=== PATIENT | female | born 1995 ===

== ENCOUNTER 2017-08-12 00:06 | Emergency (ER) | payer BC ==
[2017-08-12 00:34] VITALS: RESP 18; TEMP 98.3; BMI 32.1
--- NOTE | 2017-08-12 01:20 | ED PDOC ---
Arrival/HPI - General Chief Complaint: Medical Clearance Time Seen by Provider: 08/12/17 01:10 - History of Present Illness Narrative History of Present Illness (Text): 08/12/17 01:17 Patient is a 22 year old female whose past medical history includes asthma, who presents to the Emergency department with her mother complaining of taking 16 tablets of Zyrtec approximately 2.5 hours ago. Patient reports that she was at home and was taking the medication for allergies. Her mother was joking about taking the whole bottle but patient thought she was serious and took 16 tablets. Patient subsequently called poison control who instructed her to immediately present to Emergency department. She denies having any suicidal ideation, and also denies any fatigue, or nausea. Time/Duration: 1-3 hours Symptom Onset: Other (asymptomatic) Context: Home Past Medical History - Provider Review Nursing Documentation Reviewed: Yes - Infectious Disease Hx of Infectious Diseases: None - Cardiac Hx Cardiac Disorders: No - Pulmonary Hx Respiratory Disorders: Yes Hx Asthma: Yes - Neurological Hx Neurological Disorder: No - HEENT Hx HEENT Disorder: No - Renal Hx Renal Disorder: No - Endocrine/Metabolic Hx Endocrine Disorders: No - Hematological/Oncological Hx Blood Disorders: No - Integumentary Hx Dermatological Disorder: No - Musculoskeletal/Rheumatological Hx Musculoskeletal Disorders: No - Gastrointestinal Hx Gastrointestinal Disorders: No - Genitourinary/Gynecological Hx Genitourinary Disorders: No - Psychiatric Hx Psychophysiologic Disorder: No Hx Substance Use: Yes (Marijuana) - Anesthesia Hx Anesthesia: No Family/Social History - Physician Review Nursing Documentation Reviewed: Yes Family/Social History: No Known Family HX Smoking Status: Never Smoked Hx Alcohol Use: Yes Frequency of alcohol use: Socially Hx Substance Use: Yes (Marijuana) Allergies/Home Meds Allergies/Adverse Reactions: Allergies kiwi Allergy (Verified 08/12/17 00:43) SWELLING Home Medications: Home Meds Medication Instructions Recorded Confirmed No Known Home Med 08/12/17 08/12/17 Review of Systems - Physician Review All systems were reviewed & negative as marked: Yes - Review of Systems Constitutional: absent: Fatigue Gastrointestinal: absent: Nausea Psychiatric: absent: Suicidal Ideation Physical Exam Vital Signs Reviewed: Yes Vital Signs Temp Pulse Resp BP Pulse Ox 08/12/17 05:11 84 18 112/68 100 08/12/17 04:07 88 18 108/74 100 08/12/17 02:07 82 16 121/68 100 08/12/17 00:32 98.3 F 69 18 115/77 98 Temperature: Afebrile Blood Pressure: Normal Pulse: Regular Respiratory Rate: Normal Appearance: Positive for: Well-Appearing Mental Status: Positive for: Alert and Oriented X 3 - Systems Exam Head: Present: Atraumatic, Normocephalic Pupils: Present: PERRL Extroacular Muscles: Present: EOMI Conjunctiva: Present: Normal Mouth: Present: Moist Mucous Membranes Neck: Present: Normal Range of Motion Respiratory/Chest: Present: Clear to Auscultation, Good Air Exchange. No: Respiratory Distress, Accessory Muscle Use Cardiovascular: Present: Regular Rate and Rhythm, Normal S1, S2. No: Murmurs Abdomen: No: Tenderness, Distention, Peritoneal Signs Back: Present: Normal Inspection Upper Extremity: Present: Normal Inspection. No: Cyanosis, Edema Lower Extremity: Present: Normal Inspection. No: Edema Neurological: Present: GCS=15, CN II-XII Intact, Speech Normal Skin: Present: Warm, Dry, Normal Color. No: Rashes Psychiatric: Present: Alert, Oriented x 3, Normal Insight, Normal Concentration Medical Decision Making ED Course and Treatment: 08/12/17 01:21 Impression: Patient is a 22 year old female who requires evaluation s/p taking 16 tablets of Zyrtec. Differential Diagnosis included but are not limited to: Accidental drug overdose, Drug overdose. Plan: --EKG --Lab works -- Reassess and disposition Progress Notes: 08/12/17 1:16am Poison control was called by nurse on staff. Will order lab results. 08/12/17 02:17 EKG shows NSR at 80 BPM. Normal EKG. Interpreted by me. 08/12/17 05:40 Discussed with poison control that patient is observed here with no untoward effects. Patient understands in the future to follow proper directions when taking medications. Reevaluation: On reevaluation the patient feels better and is in no acute distress. I have discussed the results and plan with the patient, who expresses understanding. Patient given the opportunity to ask question, all questions were answered and there is agreement with the plan to discharge the patient home. Patient is stable for discharge. Patient was instructed to follow up with physician/clinic in 1-2 days or return if symptoms persist/worsen or new concerning symptoms arise. - Lab Interpretations Lab Results: 08/12/17 02:04 08/12/17 02:04 Lab Results 08/12/17 02:04: WBC 5.2, RBC 4.28, Hgb 12.0, Hct 37.3, MCV 87.1, MCH 28.0, MCHC 32.2, RDW 13.6, Plt Count 247, MPV 10.8 08/12/17 02:04: Alcohol, Quantitative < 10 08/12/17 02:04: Salicylates < 1 L, Acetaminophen < 10.0 L 08/12/17 02:04: Sodium 144, Potassium 3.7, Chloride 106, Carbon Dioxide 25, Anion Gap 16, BUN 10, Creatinine 0.7, Est GFR ( Amer) > 60, Est GFR (Non- Af Amer) > 60, Random Glucose 94, Calcium 9.0, Total Bilirubin 0.1 L, AST 22, ALT 22, Alkaline Phosphatase 71, Total Protein 6.9, Albumin 3.9, Globulin 3.0, Albumin/Globulin Ratio 1.3 I have reviewed the lab results: Yes - EKG Interpretation Interpreted by ED Physician: Yes Type: 12 lead EKG - Scribe Statement The provider has reviewed the documentation as recorded by the Scribe Elijah Truong Provider Scribe Attestation: All medical record entries made by the Scribe were at my direction and personally dictated by me. I have reviewed the chart and agree that the record accurately reflects my personal performance of the history, physical exam, medical decision making, and the department course for this patient. I have also personally directed, reviewed, and agree with the discharge instructions and disposition Disposition/Present on Arrival - Present on Arrival Any Indicators Present on Arrival: No History of DVT/PE: No History of Uncontrolled Diabetes: No Urinary Catheter: No History of Decub. Ulcer: No History Surgical Site Infection Following: None - Disposition Have Diagnosis and Disposition been Completed?: Yes Diagnosis: Accidental drug overdose Disposition: HOME/ ROUTINE Disposition Time: :44 Patient Plan: Discharge Condition: STABLE Additional Instructions: Follow proper instructions for medication taking in the future Referrals: Javier Martin MD [Primary Care Provider] - Follow up with primary Forms: [employer] (Uzbek)
[2017-08-12 02:15] LABS: MEAN CELL VOLUME 87.1 fl (80.0-105.0); MEAN CORPUSCULAR HGB CONC 32.2 g/dl (31.0-37.0); MEAN PLATELET VOLUME 10.8 fl (7.0-11.0); RBC 4.28 10^6/uL (3.5-6.1); RED CELL DISTRIBUTION WIDTH 13.6 % (11.5-14.5); WHITE BLOOD COUNT 5.2 10^3/ul (4.5-11.0)
[2017-08-12 02:27] LABS: ACETAMINOPHEN < 10.0 ug/ml (10.0-20.0); SALICYLATE < 1 mg/dL (2.0-20.0)
[2017-08-12 02:28] LABS: ALB/GLOB RATIO 1.3 (1.1-1.8); ALBUMIN 3.9 g/dL (3.0-4.8); GFR AFRICAN-AMERICAN > 60; GFR NON-AFRICAN AMERICAN > 60
[2017-08-12 02:39] LABS: ALT/SGPT 22 U/L (7-56); AST/SGOT 22 U/L (14-36); BLOOD UREA NITROGEN 10 mg/dL (7-21)
[2017-08-12 05:12] VITALS: BP 112/68; PULSE 84; O2SAT 100
--- NOTE | 2017-08-12 10:29 | CARD ---
APPROVED REPORT EKG Measurement Heart [id number] <Conclusion> Normal sinus rhythm Normal ECG
== END 2017-08-12 05:49 | disposition home or self-care (01) ==
LOC: MERGE 00:06 → ED 00:06
DX: T50.991A Poisoning by other drugs, medicaments and biological substances, accidental (unintentional), initial encounter (principal); Y92.009 Unspecified place in unspecified non-institutional (private) residence as the place of occurrence of the external cause
CPT/HCPCS: 80053; 85027; 93005; 99283; G0480